=== PATIENT | male | born 1980 | race Two or more races ===

== ENCOUNTER 2023-12-31 19:20 | Emergency (ER) | payer MEDICAID, OTHER ==
[~2023-12-31] VITALS: Ht 157.5 cm; Wt 74.8 kg
[2023-12-31 19:59] LABS: BASOPHILS # (AUTO) 0.1 K/uL (0.0-0.2); BASOPHILS % (AUTO) 0.7 % (0.0-2.0); EOSINOPHILS # (AUTO) 0.1 K/uL (0.0-0.7); EOSINOPHILS % (AUTO) 1.8 % (0.0-6.0); HEMATOCRIT 44 % (39-51); HEMOGLOBIN 15.3 g/dL (13.5-17.5); LYMPHOCYTES # (AUTO) 1.9 K/uL (0.8-4.8); MEAN CORPUSCULAR HEMOGLOBIN 32 PG (26.0-33.0); MEAN CORPUSCULAR HGB CONC 35 g/dl (31.0-36.0); MEAN CORPUSCULAR VOLUME 92 fL (80-96); MONOCYTES # (AUTO) 0.6 K/uL (0.1-1.30); MONOCYTES % (AUTO) 7.2 % (2.0-12.0); NEUTROPHILS % (AUTO) 65.3 % (43.0-81.0); PLATELET COUNT (AUTO) 261 K/uL (150-450); RED BLOOD CELL COUNT(AUTO) 4.78 MIL/uL (4.5-6.0); RED CELL DISTRIBUTION WIDTH 13.5 % (11.5-15.0); WHITE BLOOD COUNT (AUTO) 7.7 K/uL (4.3-11.0)
[2023-12-31] MEDS ORDERED: MECLIZINE HCL 25 MG TABLET ONE (20:05)
[2023-12-31] MEDS ORDERED: METOCLOPRAMIDE HCL 10 MG/2 ML VIAL ONE (20:05)
[2023-12-31] MEDS ORDERED: diphenhydrAMINE HCL 50 MG/ML VIAL ONE (20:05)
[2023-12-31 20:08] LABS: CALCIUM, SERUM 9.3 mg/dL (8.5-10.1); CARBON DIOXIDE 30 mmol/L (21-32); CHLORIDE 105 mmol/L (98-107); CREATININE 0.9 mg/dL (0.6-1.3); GLUCOSE 102 mg/dL (74-106); POTASSIUM 3.9 mmol/L (3.5-5.1); SODIUM SERUM 139 mmol/L (136-145); UREA NITROGEN, BLOOD 13 mg/dL (7-18)
[2023-12-31] MEDS: MECLIZINE HCL 12.5 MG TABLET PO ONE (20:11)
[2023-12-31] MEDS: diphenhydrAMINE HCL 50 MG/ML VIAL IV ONE (20:11)
[2023-12-31] MEDS: METOCLOPRAMIDE HCL 10 MG/2 ML VIAL IV ONE (20:11)
[2023-12-31 20:23] LABS: NT-PRO BNP 27 pg/mL (0-125)
[2023-12-31] MEDS ORDERED: MECL-159 PO (21:04)
[2023-12-31 21:49] VITALS: BP 124/85; TEMP 98; O2SAT 98
== END 2023-12-31 21:49 | disposition home or self-care (01) ==
LOC: ER 19:29
DX: R42 Dizziness and giddiness (principal); Z79.899 Other long term (current) drug therapy; Z60.2 Problems related to living alone
CPT/HCPCS: 99285; 96374; 70450; 71045; 96375; 93005; 85025; 80048; 36415; 84484 ×2; 83880; J8597; J1200; J2765